=== PATIENT | female | born 1955 | race Caucasian/White ===

== ENCOUNTER → 2017-06-25 | Outpatient (CLI) | payer OTHER | LOC: CIMAGING 08:05 | PROVIDERS: ATTEND Family Medicine | DX: Z12.31 Encounter for screening mammogram for malignant neoplasm of breast (principal) | CPT/HCPCS: G0202 ==

== ENCOUNTER → 2018-06-27 | Outpatient (CLI) | payer OTHER | LOC: CIMAGING 08:51 | PROVIDERS: ATTEND Family Medicine | DX: Z12.31 Encounter for screening mammogram for malignant neoplasm of breast (principal); Z80.3 Family history of malignant neoplasm of breast ==

== ENCOUNTER → 2018-07-07 | Outpatient (CLI) | payer OTHER | LOC: FIMAGING 12:00 | PROVIDERS: ATTEND Family Medicine | DX: N63.11 Unspecified lump in the right breast, upper outer quadrant (principal); N63.13 Unspecified lump in the right breast, lower outer quadrant ==

== ENCOUNTER → 2018-07-13 | Outpatient (CLI) | payer OTHER ==
[~2018-07-13] MED LIST: BUPIVACAINE 0.5% 30 ML SDV ONE; LIDOCAINE 1% 300 MG/30 ML SDV ONE; THROMBIN (BOVINE) 5,000 UNIT VIAL TP ONE
== END ==
LOC: FIMAGING 07:18
PROVIDERS: ATTEND Family Medicine
PROC: 0HBT3ZX Excision of Right Breast, Percutaneous Approach, Diagnostic (ICD-10-PCS; principal; 2018-07-13)
DX: C50.411 Malignant neoplasm of upper-outer quadrant of right female breast (principal); C50.511 Malignant neoplasm of lower-outer quadrant of right female breast

== ENCOUNTER 2018-08-30 07:56 | Observation (INO) | payer OTHER ==
[2018-08-30] MEDS ORDERED: LR 1,000 ML IV ONE (08:44)
[2018-08-30] MEDS ORDERED: LIDOCAINE 1% 2 ML INJ ID PRN (08:44)
[2018-08-30] MEDS ORDERED: ceFAZolin 2 GM/DEXTROSE 100 ML IV ONE (09:11)
--- NOTE | 2018-08-30 09:11 | PDHPUP ---
History & Physical Update H&P update statement: This history and physical update is based on an assessment of the patient which was completed after admission or registration (within 24 hours), but prior to the surgery/procedure. H&P update: H&P reviewed & patient examined, no change in patient's condition since H&P completed
[2018-08-30] MEDS ORDERED: BUPIVACAINE 0.25% 30 ML SDV ONE ×2 (09:38→13:37)
[2018-08-30] MEDS ORDERED: METHYLENE BLUE 0.5% 50 MG/10 ML AMP ONE (09:38)
[2018-08-30] MEDS ORDERED: GENTAMICIN SULFATE 80 MG/2 ML VIAL ONE (09:38)
[2018-08-30] MEDS ORDERED: BACITRACIN ZINC 0.5 OZ OINTTUBE TP ONE ×2 (09:38→13:30)
[2018-08-30] MEDS ORDERED: MIDAZOLAM 2 MG/2 ML VIAL IVP ONE (09:38)
--- NOTE | 2018-08-30 09:38 | PDANEPAE ---
ANE Past Medical History - Cardiovascular History Hx Hypertension: No Hx Arrhythmias: No Hx Chest Pain: No Hx Coronary Artery / Peripheral Vascular Disease: No Hx CHF / Valvular Disease: No Hx Palpitations: No - Pulmonary History Hx COPD: No Hx Asthma/Reactive Airway Disease: No Hx Recent Upper Respiratory Infection: No Hx Oxygen in Use at Home: No Hx Sleep Apnea: No Sleep Apnea Screening Result - Last Documented: Negative - Neurologic History Hx Cerebrovascular Accident: No Hx Seizures: No Hx Dementia: No - Endocrine History Hx Diabetes: No - Renal History Hx Renal Disorders: No - Liver History Hx Hepatic Disorders: No - Neurological & Psychiatric Hx Hx Neurological and Psychiatric Disorders: No - Cancer History Hx Cancer: Yes Cancer History Comment: breast ca - Congenital Disorder History Hx Congenital Disorders: Yes Congenital History Comment: breast cancer - GI History Hx Gastrointestinal Disorders: No - Other Health History Other Health History: none - Chronic Pain History Chronic Pain: Yes (hands) - Surgical History Prior Surgeries: hysterectomy 2011 ANE Review of Systems Review of Systems: - Exercise capacity METS (RN): 6 METS ANE Patient History - Allergies Allergies/Adverse Reactions: No Known Allergies Allergy (Verified 08/11/18 11:12) - Home Medications Home medications: home medication list seen and reviewed Home Medications: Calcium Carb/Mag Ox/Zinc Sulf 08/11/18 [Last Taken 1 Week Ago ~08/23/18] Cholecalciferol (Vitamin D3) 08/11/18 [Last Taken 1 Week Ago ~08/23/18] Cyclobenzaprine HCl 08/11/18 [Last Taken 08/29/18] Fish Oil 1000 mg (*) 08/11/18 [Last Taken 1 Week Ago ~08/23/18] Glucosamine Chondroitin Caplet 08/11/18 [Last Taken 1 Week Ago ~08/23/18] Meloxicam 08/11/18 [Last Taken 1 Week Ago ~08/23/18] Multivitamin 08/11/18 [Last Taken 1 Week Ago ~08/23/18] - NPO status NPO Since - Liquids (Date): 08/30/18 NPO Since - Liquids (Time): 08:30 NPO Since - Solids (Date): 08/29/18 NPO Since - Solids (Time): 19:00 - Anes Hx Anes Hx: no prior problems - Smoking Hx Smoking Status: Former smoker - Family Anes Hx Family Hx Anesthesia Complications: none ANE Labs/Vital Signs - Vital Signs Vital Signs: reviewed preoperatively; see RN documention for details Blood Pressure: 140/74 Heart Rate: 71 Respiratory Rate: 12 O2 Sat (%): 99 Height: 172.72 cm Weight: 58.967 kg ANE Physical Exam - Airway Neck exam: decreased ROM Mallampati Score: Class 1 Mouth exam: normal dental/mouth exam - Pulmonary Pulmonary: clear to auscultation - Cardiovascular Cardiovascular: regular rate and rhythym - ASA Status ASA Status: II ANE Anesthesia Plan Anesthesia Plan: general endotracheal anesthesia
[2018-08-30] MEDS ORDERED: BACITRACIN 50,000 UNITS/10 ML SYR IRR ONE (09:39)
[2018-08-30] MEDS ORDERED: ceFAZolin 1 GM/5 ML SYR ONE (09:40)
[2018-08-30] MEDS ORDERED: PROPOFOL 200 MG/20 ML VIAL ONE (10:57)
[2018-08-30] MEDS ORDERED: HYDROmorphONE/DILAUDID 2 MG/ML INJ ONE ×2 (10:57→14:45)
[2018-08-30] MEDS ORDERED: fentaNYL 100 MCG/2 ML INJ ONE ×2 (10:57→14:37)
[2018-08-30] MEDS ORDERED: ROCURONIUM 50 MG/5 ML VIAL ONE ×2 (10:59→11:20)
[2018-08-30] MEDS ORDERED: DEXAMETHASONE 4 MG/ML VIAL ONE (11:21)
[2018-08-30] MEDS ORDERED: ONDANSETRON 4 MG/2 ML VIAL ONE (13:27)
[2018-08-30] MEDS ORDERED: EPINEPHrine 1 MG/ML INJ ONE (13:35)
[2018-08-30] MEDS ORDERED: SUGAMMADEX SODIUM 200 MG/2 ML VIAL IVP ONE (13:46)
[2018-08-30] MEDS ORDERED: MEPERIDINE 25 MG/0.5 ML AMP IVP PRN (13:53)
[2018-08-30] MEDS ORDERED: ALBUTEROL 3 ML DEYVIAL IH PRN (13:53)
[2018-08-30] MEDS ORDERED: LABETALOL HCL 5 MG/ML 20 ML MDV IVP PRN (13:53)
[2018-08-30] MEDS ORDERED: HYDROmorphONE/DILAUDID 2 MG/ML INJ IVP PRN (13:53)
[2018-08-30] MEDS ORDERED: ONDANSETRON 4 MG/2 ML VIAL IVP PRN ×2 (13:53→17:34)
[2018-08-30] MEDS ORDERED: DEXAMETHASONE 4 MG/ML VIAL IVP PRN (13:53)
[2018-08-30] MEDS ORDERED: METOCLOPRAMIDE 10 MG/2 ML VIAL IVP PRN (13:53)
[2018-08-30] MEDS ORDERED: PROMETHAZINE HCL 25 MG/ML INJ IVP PRN (13:53)
[2018-08-30] MEDS ORDERED: LR 500 ML IV PRN (13:53)
[2018-08-30] MEDS ORDERED: oxyCODONE IR 5 MG TAB PO PRN (13:53)
[2018-08-30] MEDS ORDERED: NALOXONE HCL 0.4 MG/ML INJ IVP PRN (13:53)
[2018-08-30] MEDS ORDERED: DIAZEPAM 5 MG/ML 1 ML SYR IVP PRN (13:53)
--- NOTE | 2018-08-30 14:19 | POSTOPPROG ---
Post Op Note Date of Operation: 08/30/18 Surgeon: Fito Vera Benchroom Shop Optician: Candace Gandhi PA-C Anesthesiologist: Yissel Enriquez Anesthesia: GET(General Endotracheal) Pre-op Diagnosis: Rt breast carcinoma Post-op Diagnosis: Same Procedure: Bilat simple mast, bilat SLNB, bilat pec block Findings: normal right nipple margin Inf/Abcess present in the surg proc area at time of surgery?: No EBL: Minimal Specimen(s): bilateral breasts, nodes, margins
--- NOTE | 2018-08-30 14:20 | GOP ---
[f rep st] OPERATIVE REPORT DATE OF OPERATION: 08/30/2018 SURGEON: Milagro Garza Jr., MD ROLL REPAIRER: Marcello Carmen CST ANESTHESIA: General inhalational anesthetic. PREOPERATIVE DIAGNOSIS: Right breast cancer. POSTOPERATIVE DIAGNOSIS: Right breast cancer. PROCEDURE PERFORMED: Immediate bilateral breast reconstruction utilizing tissue expanders and human dermal allograft. FINDINGS: ESTIMATED BLOOD LOSS: Estimated blood loss during reconstruction 10 cc. DESCRIPTION OF PROCEDURE: She was taken to the operating room. After adequate inhalational general anesthesia was provided, uncomplicated bilateral mastectomy with sentinel lymph node mapping was perf ormed by Dr. Vera. The reconstruction began by preparing tissue expanders on a sterile back table. T hese were Natrelle 133+ FX 350 cc devices. They were initially examined. All air was removed. They were then refilled with 300 cc of air. An extra-large AlloDerm Select Restore 400 square cm sheet o f human dermal allograft was prepared for each side. It was triple rinsed in normal saline, soaked i n triple antibiotic saline. The tissue ice cream freezer was soaked in triple antibiotic saline, and the Allo Derm was used as a complete tissue wrap around the tissue ice cream freezer, and was sutured around the tissue ice cream freezer using interrupted and running 3-0 Vicryl suture. All redundant graft was trimmed to assure a smooth contour and all cut edges were sealed. The pockets were then rinsed with triple antibiotic saline. Meticulous hemostasis was assured. The AlloDerm wrapped tissue expanders were then placed into this subcutaneous space on top of the muscle and sutured down to the chest wall using 2-0 PDS wiggins ture. She had a 15 round drain placed on each side. The mastectomy skin incision was then trimmed t o assure a smooth well-vascularized tissue plane. The incisions were then closed using everting deep dermal 3-0 Monocryl suture, and further everted using surgical allan. Minimal tension on the skin was appreciated, but good fill of the tissue defect left from the mastectomy. She had bacitracin, X eroform, 4x4s, compressive bra placed. The drains were placed to bulb suction. She was extubated in the OR, taken to recovery room awake and in stable condition. SURGEON: Milagro Garza MD TISSUE EXPANDERS: Allergan Natrelle 133+ FX 350 cc devices filled to 300 cc bilaterally with air. T wo MI drains placed. COMPLICATIONS: No complications. INDICATIONS FOR OPERATION: Yumiko is a 62-year-old white female referred from Dr. Fito Vera after a right breast cancer diagnosis. She elected to undergo bilateral mastectomy and was deemed an excell ent candidate for nipple sparing mastectomy with immediate tissue ice cream freezer reconstruction utilizing a prepectoral AlloDerm wrap device. She was taken to the operating room for that purpose. CLINICAL COURSE: After risks and benefits of procedure were explained to the patient, highlighting b leeding, infection, need for premature tissue ice cream freezer removal, tissue necrosis, loss of nipple or ni pple papule, numbness, weakness, poor cosmetic outcome, need for additional procedures, formal operat gabby consent was obtained. /[id number]/MODL
[2018-08-30] MEDS: fentaNYL 100 MCG/2 ML INJ IVP PRN ×2 (14:38→14:55)
--- NOTE | 2018-08-30 14:40 | GOP ---
[f rep st] OPERATIVE REPORT DATE OF OPERATION: 08/30/2018 SURGEON: Fito Vera MD PLASTIC SURGEON: Milagro Garza MD. JUNK REMOVAL SPECIALIST: Candace Gandhi PA-C. ANESTHESIA: General. ANESTHESIOLOGIST: Yissel Enriquez MD. PREOPERATIVE DIAGNOSIS: Multicentric right breast carcinoma. POSTOPERATIVE DIAGNOSIS: Multicentric right breast carcinoma. PROCEDURE PERFORMED: Bilateral nipple-sparing mastectomy with bilateral axillary sentinel node biopsy, with immediate tissue aix system administrator reconstruction. Bilateral pectoralis block. FINDINGS: See below. INDICATIONS: 62-year-old female with a multicentric right breast carcinoma. She has opted to undergo a right mastectomy with axillary sentinel node sampling with immediate tissue aix system administrator reconstruction and prophylactic contralateral mastectomy. Risks and benefits were explained including bleeding , infection, tumor recurrence, need for additional adjuvant therapy, arm edema, nerve injury, indications for completion axillary dissection, skin flap necrosis , and nipple necrosis, as well as others. All questions were answered. She desires to proceed. A surgical technician is standard, necessary, and customary for the safe performance of this procedure. DESCRIPTION OF PROCEDURE: Upon returning from bilateral breast lymphoscintigraphy, bilateral breasts were incised through lower outer quadrant inframammary fold incisions. Using electrocautery, skin flaps were created to the level of the clavicles, sternum, and latissimus dorsi muscle, as well as the remaining inframammary folds. The breast was taken off the chest wall, incorporating the pectoralis major fascia. These specimens were tagged for orientation. Bilateral nipple-areolar complexes were sharply skeletonized. A frozen section upon the right breast showed no evidence of malignancy, thus allowing for continuation of a nipple-sparing procedure. Bilateral axillae were opened. Two hot nodes measuring 715 with the gamma counter were identified in the right axilla, with background activity all being less than 30 units. The left axilla measured 1800 units, with background activity all being less than 150 units. Satisfactory hemostasis was assured throughout bilateral breast envelopes. Skin envelopes all appeared pink and healthy. 0.25% marcaine with epinephrine was applied between bilateral interpectoral planes as well along the serratus musculature. Care of the case was turned to Dr. Garza for tissue aix system administrator placement and wound closure. The patient was extubated in the operating room and taken to Recovery uneventfully. /[id number]/MODL MTDD
[2018-08-30] MEDS: KETOROLAC 15 MG/1 ML SDV IVP SCH (17:21)
--- NOTE | 2018-08-30 17:51 | SOAPPROG ---
SOAP Progress Note Assessment/Plan: Assessment/Plan: No postop concerns. Doing very well. Added orders for Corinne and Zofran should she need them overnight. Pain currently well managed. 08/30/18 17:50 Subjective: No post operative complaints. No pain. Feeling motivated to ambulate tonight. present during visit. Objective: Vital Signs Temp Pulse Resp BP Pulse Ox 36.6 C 84 18 130/70 H 100 08/30/18 15:54 08/30/18 17:10 08/30/18 17:10 08/30/18 17:10 08/30/18 17:10 08/29/18 08/30/18 08/31/18 05:59 05:59 05:59 Intake Total 570 Output Total 215 Balance 355 Physical Exam: Gen: A&O x3, appears comfortable, afebrile Breast: bilateral breast skin flaps pink, no skin necrosis. Incisions clean. Nontender. ICD10 Worksheet Patient Problems: Problems Problem Status Onset Breast cancer Acute - ICD10 Problem Qualifiers (1) Breast cancer
[2018-08-30] MEDS: HYDROCODONE/APAP 5/325 TAB PO PRN (20:57)
[2018-08-30] MEDS ORDERED: CYCLOBENZAPRINE 10 MG TAB PO SCH (21:00)
[2018-08-31] MEDS: KETOROLAC 15 MG/1 ML SDV IVP SCH ×3 (01:35→11:30)
[2018-08-31] MEDS: HYDROCODONE/APAP 5/325 TAB PO PRN (04:55)
--- NOTE | 2018-08-31 07:48 | POSTANESTH ---
Post Anesthetic Evaluation Cardiovascular Status: Normal, Stable Respiratory Status: Normal, Stable Level of Consciousness/Mental Status: Can Participate in Eval Pain Control: Adequate, Prn Tx Ordered Nausea/Vomiting Control: Adequate, Prn Tx Ordered Complications Possibly Related to Anesthesia: None Noted
[2018-08-31] MEDS ORDERED: CHOLECALCIFEROL VIT D3 1,000 UNITS TAB PO SCH (09:00)
[2018-08-31] MEDS ORDERED: GLUCOSAMINE/CHONDROITIN CAP PO SCH (09:00)
[2018-08-31] MEDS ORDERED: MULTIVITAMINS 1 EACH TAB PO SCH (09:00)
[2018-08-31] MEDS ORDERED: OMEGA-3 FATTY ACIDS 1,000 MG CAP PO SCH (09:00)
[2018-08-31] MEDS: SUMAtriptan 50 MG TAB PO PRN ×2 (09:58→12:04)
[2018-08-31] MEDS ORDERED: NS 1,000 ML IV ONE (10:17)
[2018-08-31 12:13] VITALS: BP 127/76
--- NOTE | 2018-08-31 12:36 | ASMTLACE ---
LACE Length of stay for Answers: 1 day current admission Comorbidities - select Answers: Any tumor (including all that apply lymphoma or leukemia) Opioid dependence / Chronic pain # of Emergency department Answers: 0 visits in the last 6 months Score: 7 Date Signed: 08/31/2018 12:36 PM Electronically Signed By:Divya Acosta RN
--- NOTE | 2018-08-31 12:36 | ASMTDCNOTE ---
Case Management Discharge Discharge Order Complete? Answers: Yes Patient to Obtain Answers: via Family Medications Transportation Arranged Answers: Family/Friends Family Notified Answers: Yes Discharge Comments Notes: Pt medically cleared for discharge. No current needs Identified. CM available should needs arrive. Date Signed: 08/31/2018 12:35 PM Electronically Signed By:Divya Acosta RN
== END 2018-08-31 16:45 | disposition home or self-care (01) ==
LOC: F3N 07:56 → F1N 15:36
PROVIDERS: ADMIT Surgery; ATTEND Surgery
PROC: 0HTV0ZZ Resection of Bilateral Breast, Open Approach (ICD-10-PCS; principal; 2018-08-30 11:04)
PROC: 07B60ZX Excision of Left Axillary Lymphatic, Open Approach, Diagnostic (ICD-10-PCS; principal; 2018-08-30 11:04)
PROC: 07B50ZX Excision of Right Axillary Lymphatic, Open Approach, Diagnostic (ICD-10-PCS; principal; 2018-08-30 11:04)
PROC: 0HHV0NZ Insertion of Tissue Expander into Bilateral Breast, Open Approach (ICD-10-PCS; 2018-08-30 11:04)
PROC: 0HRVXKZ (ICD-10-PCS; 2018-08-30 11:04)
PROC: 3E0W3KZ Introduction of Other Diagnostic Substance into Lymphatics, Percutaneous Approach (ICD-10-PCS; 2018-08-30 11:04)
DX: C50.111 Malignant neoplasm of central portion of right female breast (principal); G43.909 Migraine, unspecified, not intractable, without status migrainosus; M85.89 Other specified disorders of bone density and structure, multiple sites; Z87.891 Personal history of nicotine dependence; Z80.3 Family history of malignant neoplasm of breast; Z82.49 Family history of ischemic heart disease and other diseases of the circulatory system; Z90.710 Acquired absence of both cervix and uterus; Z90.722 Acquired absence of ovaries, bilateral
CPT/HCPCS: 15777; 19305; 19357; 38792; A9520; G0378; J0171; J0690; J1100; J1170; J1580; J1885; J2250; J2405; J2704; J3010; Q4116; Q9968

== ENCOUNTER → 2018-09-14 | Outpatient (CLI) | payer OTHER | LOC: BMCIMAGING 10:33 | PROVIDERS: ATTEND Internal Medicine Hematology & Oncology | DX: Z13.820 Encounter for screening for osteoporosis (principal) ==